=== PATIENT | female | born 1940 | race American Indian/Alaskan Native ===

== ENCOUNTER 2017-01-04 11:33 | Emergency (ER) | payer MEDICARE ==
--- NOTE | 2017-01-04 12:02 | Emergency Department Report ---
Chief Complaint: Nausea/Vomiting/Diarrhea Stated Complaint: VOMITTING/CHILLS/FEVER Time Seen by Provider: 01/04/17 11:45 - HPI History of Present Illness: debilitated pt w co cough and fever she vomiting once in last day no diarrhea here w daughter poor informant pcp melvin seeing new md now p referral from us recent urti fever 100.3 p advil at home on asa fenofibrate hctz lopressor nifedipine off her statin and wai bc she ran out pmh cva htn g tube w reversal hysterectomy hpld denies cad or dm. - Exam Vital Signs: Vital Signs 01/04/17 11:43 Temperature 100.3 F H Pulse Rate 109 H Respiratory 20 Rate Blood Pressure 162/92 O2 Sat by Pulse 96 Oximetry MSE screening note: Focused history and physical exam performed. Due to findings the following was ordered: ED Disposition for MSE Condition: Stable
[2017-01-04 12:45] LABS: Basophils % (Auto) 0.4 % (0.0-1.8); Eosinophils % (Auto) 0.7 % (0.0-4.3); Hematocrit 37.4 % (30.3-42.9); Hemoglobin 12.4 gm/dl (10.1-14.3); Mean Corpuscular HGB Conc 33 % (30-34); Mean Corpuscular Hemoglobin 30 pg (28-32); Mean Corpuscular Volume 90 fl (79-97); Platelet Count 281 K/mm3 (140-440); Red Blood Count 4.14 M/mm3 (3.65-5.03); Red Cell Distribution Width 13.3 % (13.2-15.2); White Blood Count 13.9 K/mm3 (4.5-11.0)
[2017-01-04 13:02] LABS: Alanine Aminotransferase 9 units/L (7-56); Albumin 3.4 g/dL (3.9-5); Albumin/Globulin Ratio 0.8 %; Alkaline Phosphatase 34 units/L (35-129); Amylase 144 units/L (27-131); Anion Gap 20 mmol/L; BUN/Creatinine Ratio 15.45; Blood Urea Nitrogen 17 mg/dL (7-17); Calcium 8.9 mg/dL (8.4-10.2); Carbon Dioxide 21 mmol/L (22-30); Glucose 120 mg/dL (65-100); Lipase 42 units/L (13-60); Potassium 3.5 mmol/L (3.6-5.0); Sodium 142 mmol/L (137-145); Total Protein 7.8 g/dL (6.3-8.2)
--- NOTE | 2017-01-04 14:38 | XRay Report ---
Chest 2 views: Compared to 12/12/15. History: Fever, cough. Nausea and vomiting. Findings: Borderline cardiomegaly. Trachea is midline. No consolidation, pneumothorax or pleural effusion. Impression: No definite acute cardiopulmonary findings.
[2017-01-04] MEDS ORDERED: ZOFRAN IV ONE (18:39)
[2017-01-04] MEDS ORDERED: LEVAQUIN 750MG/150ML 750 MG/150 ML BAG IV ONE (18:41)
--- NOTE | 2017-01-04 18:48 | Emergency Department Report ---
ED N/V/D HPI - General Chief complaint: Nausea/Vomiting/Diarrhea Stated complaint: VOMITTING/CHILLS/FEVER Time Seen by Provider: 01/04/17 18:33 Source: patient, family Mode of arrival: Ambulatory Limitations: Physical Limitation - History of Present Illness MD complaint: nausea, vomiting, abdominal pain -: Gradual Description of Vomiting: food contents Associated Abdominal Pain: Yes Location: diffuse Severity: moderate Quality: cramping Improves with: none Associated Symptoms: fever/chills, nausea/vomiting - Related Data Home Medications Medication Instructions Recorded Confirmed Last Taken Aspirin [Aspirin TAB] 325 mg PO QDAY 12/12/15 12/12/15 Unknown Fenofibrate [Lofibra] 160 mg PO QDAY 12/12/15 12/12/15 Unknown Hydrochlorothiazide [HCTZ] 12.5 mg PO DAILY 12/12/15 12/12/15 Unknown Lisinopril [Zestril TAB] 40 mg PO QDAY 12/12/15 12/12/15 Unknown Metoprolol [Lopressor TAB] 100 mg PO DAILY 12/12/15 12/12/15 Unknown NIFEdipine XL [Procardia Xl] 90 mg PO QDAY 12/12/15 12/12/15 Unknown Simvastatin [Zocor TAB] 80 mg PO QHS 12/12/15 12/12/15 Unknown Previous Rx's Medication Instructions Recorded Last Taken Type Azithromycin [Zithromax TAB] 250 mg PO QDAY #7 tablet 12/12/15 Unknown Rx Cefuroxime [Ceftin] 250 mg PO Q12H #20 tablet 12/12/15 Unknown Rx Levofloxacin [Levaquin TAB] 500 mg PO QDAY #7 tablet 01/04/17 Unknown Rx Ondansetron [Zofran Odt] 4 mg PO Q4-6H PRN #14 tab.rapdis 01/04/17 Unknown Rx Allergies Allergy/AdvReac Type Severity Reaction Status Date / Time clonidine Allergy Dizziness Verified 08/29/14 11:53 Penicillins Allergy Hives Verified 08/29/14 11:53 ED Review of Systems ROS: Stated complaint: VOMITTING/CHILLS/FEVER Other details as noted in HPI Comment: All other systems reviewed and negative ED Past Medical Hx - Past Medical History Previous Medical History?: Yes Hx Hypertension: Yes Hx CVA: Yes (left sided deficits) - Surgical History Past Surgical History?: No Additional Surgical History: G-tube placed and reversal , hysterectomy - Social History Smoking Status: Never Smoker Substance Use Type: Prescribed - Medications Home Medications: Home Medications Medication Instructions Recorded Confirmed Last Taken Type Aspirin [Aspirin TAB] 325 mg PO QDAY 12/12/15 12/12/15 Unknown History Azithromycin [Zithromax TAB] 250 mg PO QDAY #7 tablet 12/12/15 Unknown Rx Cefuroxime [Ceftin] 250 mg PO Q12H #20 tablet 12/12/15 Unknown Rx Fenofibrate [Lofibra] 160 mg PO QDAY 12/12/15 12/12/15 Unknown History Hydrochlorothiazide [HCTZ] 12.5 mg PO DAILY 12/12/15 12/12/15 Unknown History Lisinopril [Zestril TAB] 40 mg PO QDAY 12/12/15 12/12/15 Unknown History Metoprolol [Lopressor TAB] 100 mg PO DAILY 12/12/15 12/12/15 Unknown History NIFEdipine XL [Procardia Xl] 90 mg PO QDAY 12/12/15 12/12/15 Unknown History Simvastatin [Zocor TAB] 80 mg PO QHS 12/12/15 12/12/15 Unknown History Levofloxacin [Levaquin TAB] 500 mg PO QDAY #7 tablet 01/04/17 Unknown Rx Ondansetron [Zofran Odt] 4 mg PO Q4-6H PRN #14 tab.rapdis 01/04/17 Unknown Rx ED Physical Exam - General Limitations: Physical Limitation General appearance: alert, in no apparent distress - Head Head exam: Present: atraumatic, normocephalic - ENT ENT exam: Present: normal exam - Neck Neck exam: Present: normal inspection. Absent: meningismus - Respiratory Respiratory exam: Present: normal lung sounds bilaterally - Cardiovascular Cardiovascular Exam: Present: regular rate - GI/Abdominal GI/Abdominal exam: Present: soft - Neurological Exam Neurological exam: Present: alert, oriented X3, CN II-XII intact ED Course Vital Signs 01/04/17 01/04/17 01/04/17 11:43 18:44 18:53 Temperature 100.3 F H Pulse Rate 109 H 72 Respiratory 20 14 20 Rate Blood Pressure 162/92 Blood Pressure [Left] O2 Sat by Pulse 96 96 Oximetry 01/04/17 20:03 Temperature 98.2 F Pulse Rate 71 Respiratory 13 Rate Blood Pressure Blood Pressure 156/62 [Left] O2 Sat by Pulse 96 Oximetry ED Medical Decision Making - Lab Data Result diagrams: 01/04/17 12:26 01/04/17 12:26 - EKG Data -: EKG Interpreted by Me EKG shows normal: sinus rhythm Rate: normal - EKG Data When compared to previous EKG there are: no significant change Interpretation: no acute changes - Radiology Data Radiology results: report reviewed, image reviewed - Medical Decision Making PATIENT STATED THAT SHE FEEL MUCH BETTER , NO ABDOMINAL PAIN ,NAUSEA OR VOMITING.CT ABDOMEN/PEL WITH NO ACUTE FINDING Critical care attestation.: If time is entered above; I have spent that time in minutes in the direct care of this critically ill patient, excluding procedure time. ED Disposition Clinical Impression: Abdominal pain, Vomiting Disposition: DC-01 TO HOME OR SELFCARE Is pt being admited?: No Does the pt Need Aspirin: No Condition: Stable Instructions: Fever in Adults (ED), Abdominal Pain (ED) Prescriptions: Levofloxacin [Levaquin TAB] 500 mg PO QDAY #7 tablet Ondansetron [Zofran Odt] 4 mg PO Q4-6H PRN #14 tab.rapdis PRN Reason: Nausea And Vomiting
[2017-01-04 19:19] LABS: Bilirubin,Urine NEG (Negative); Blood,Urine NEG (Negative); Ketones,Urine TR mg/dL (Negative); Leukocyte Esterase,Urine NEG (Negative); Mucus,Urine FEW /HPF; Nitrite,Urine NEG (Negative)
--- NOTE | 2017-01-04 19:42 | Cat Scan Report ---
FINAL REPORT EXAM: CT ABDOMEN PELVIS WO CON HISTORY: ABDOMINAL PAIN TECHNIQUE: Spiral CT scanning of the abdomen and pelvis. No oral or IV contrast administered. Multiplanar reformations. PRIORS: None. FINDINGS: Abdomen: Examination limited due to lack of contrast administration. Visualized lung bases show mild atelectatic change or scarring bilaterally. Nodular densities in right middle lobe measuring approximately 6 and 4.5 mm, respectively, nonspecific. Calcified granuloma in the left lower lobe. Mild cardiomegaly. Small hiatal hernia. No radiopaque gallstones. Liver grossly unremarkable. Spleen grossly unremarkable. Pancreas grossly unremarkable. Mild cortical thinning or atrophic change bilaterally. Rounded hypodensity in the right kidney measures approximately 1.2 cm in lower pole. Subcentimeter, exophytic isodensity also off right renal lower pole. No apparent renal calcifications or significant hydronephrosis. Mild nodular enlargement in the left adrenal gland measuring 1.7 cm, nonspecific. Right adrenal gland grossly unremarkable. Pelvis: Mildly nonspecific bowel gas pattern without focal inflammatory change or evidence of mechanical obstruction. Mild diverticular change scattered in the colon. Appendix within normal limits. No significant free peritoneal fluid or loculated fluid collection. Diffuse aortoiliac calcification without aneurysmal dilatation. Degenerative changes in thoracolumbar spine. Small, fat-containing ventral hernia in the epigastric region and smaller hernia in the umbilical region. IMPRESSION: 1. Nonspecific bowel gas pattern suggesting adynamic ileus, which may be associated with nonspecific postinflammatory change, including enteritis. Correlate clinically. 2. Diverticulosis. 3. Right renal hypodensities possibly representing cysts, but nonspecific. Correlation with renal ultrasound may be confirmatory, as clinically indicated. 4. Left adrenal nodule may represent adenomatous change, but is indeterminate. Followup may be warranted. 5. Nodular densities in right middle lobe, indeterminate. If the patient is low risk (no significant smoking history, no history of malignancy, and a normal immune system) nodules 4-6 mm in size need noncontrast CT chest follow-up in 12 months. If there is no change at that time, no additional follow up is necessary. If the patient is high risk, follow-up noncontrast chest CT in 6-12 months recommended. If there is no change at that time, an additional noncontrast chest CT recommended at 18-24 months from today's date. (Based on Fleischner criteria).
[2017-01-04 20:04] VITALS: BP 156/62
== END 2017-01-04 21:20 | disposition home or self-care (01) ==
LOC: ED 11:33
DX: R11.2 Nausea with vomiting, unspecified (principal); R10.9 Unspecified abdominal pain; I10 Essential (primary) hypertension; Z79.82 Long term (current) use of aspirin; Z88.0 Allergy status to penicillin; Z88.8 Allergy status to other drugs, medicaments and biological substances; Z86.73 Personal history of transient ischemic attack (TIA), and cerebral infarction without residual deficits
CPT/HCPCS: 36415; 71020; 74176; 80053; 81001; 82140; 82150; 83690; 84484; 85025; 87040; 93005; 93010; 96365; 96375; 99284; J1956; J2405

== ENCOUNTER 2018-12-09 09:33 | Observation (INO) | payer MEDICARE ==
[2018-12-09 10:05] LABS: Basophils % (Auto) 0.3 % (0.0-1.8); Hematocrit 47.8 % (30.3-42.9); Hemoglobin 16.5 gm/dl (10.1-14.3); Lymphocytes # (Auto) 1.1 K/mm3 (1.2-5.4); Lymphocytes % (Auto) 10.2 % (13.4-35.0); Mean Corpuscular HGB Conc 35 % (30-34); Mean Corpuscular Volume 90 fl (79-97); Monocytes # (Auto) 1.1 K/mm3 (0.0-0.8); Monocytes % (Auto) 10.1 % (0.0-7.3); Platelet Count 319 K/mm3 (140-440); Red Cell Distribution Width 13.4 % (13.2-15.2)
[2018-12-09] MEDS ORDERED: NACL 0.9% 500 ML 500 ML IV ONE (10:13)
--- NOTE | 2018-12-09 10:18 | Emergency Department Report ---
HPI - General Chief Complaint: Weakness Time Seen by Provider: 12/09/18 10:01 - HPI HPI: 78-year-old -[place] female presents to the emergency department from her home with complaints of some generalized weakness, a transient headache, and some previous nausea with vomiting. The patient's daughter is helping to provide some of the history/information, as she is currently at bedside. The day before yesterday, the patient had one or 2 episodes of the nausea with vomiting. She potentially had another episode last night but that is unclear. The patient spent most of the day in bed yesterday and had to be coaxed out of bed by her family. This is unusual for her as she is normally more energetic, ambulatory, cooking for herself and completing all ADLs. The patient also says that she woke up today with a headache but that has since resolved. She does complain of some mild abdominal pain over the past 24 hours. She denies any problems with bowel or bladder, numbness or paresthesias, vision change, chest pain, shortness of breath, fever. She has not taken anything for her symptoms prior to presentation. No recent travel or sick contacts at home. Her primary care physician is Dr. Kim. The patient has a past medical history of hypertension and a previous CVA in the that had given her some left-sided deficits and difficulty with speech which may still be residual but is greatly improved. ED Past Medical Hx - Past Medical History Previous Medical History?: Yes Hx Hypertension: Yes Hx CVA: Yes (left sided deficits) Hx HIV: No - Surgical History Past Surgical History?: Yes Additional Surgical History: G-tube placed and reversal , hysterectomy - Social History Smoking Status: Never Smoker Substance Use Type: None - Medications Home Medications: Home Medications Medication Instructions Recorded Confirmed Last Taken Type Lisinopril [Zestril TAB] 40 mg PO QDAY 12/12/15 12/09/18 1 Day Ago History ~03/09/18 Metoprolol [Lopressor TAB] 100 mg PO BID 12/12/15 12/09/18 1 Day Ago History ~03/09/18 NIFEdipine XL [Procardia Xl] 90 mg PO QDAY 12/12/15 12/09/18 1 Day Ago History ~03/09/18 hydroCHLOROthiazide [HCTZ] 12.5 mg PO DAILY 12/12/15 12/09/18 1 Day Ago History ~03/09/18 Cholecalciferol Vit D3 [Vitamin D3 1,000 unit PO QDAY 12/09/18 12/09/18 Unknown History 1,000 UNIT TAB] ED Review of Systems ROS: Stated complaint: WEAK Other details as noted in HPI Constitutional: weakness. denies: chills, fever Eyes: denies: eye pain, vision change ENT: denies: ear pain, throat pain Respiratory: denies: cough, shortness of breath Cardiovascular: denies: chest pain, palpitations Gastrointestinal: abdominal pain, nausea, vomiting Genitourinary: denies: dysuria, discharge Musculoskeletal: denies: back pain, arthralgia Skin: denies: rash, lesions Neurological: headache (resolved). denies: numbness, paresthesias Physical Exam - Physical Exam Vital Signs: Vital Signs 12/09/18 09:37 Temperature 97.6 F Pulse Rate 104 H Respiratory 16 Rate Blood Pressure 150/90 [Left] O2 Sat by Pulse 97 Oximetry Physical Exam: GENERAL: The patient is well-developed well-nourished. HENT: Normocephalic. Atraumatic. Patient has moist mucous membranes. EYES: Extraocular motions are intact. Pupils equal reactive to light bilaterally. NECK: Supple. Trachea is midline. CHEST/LUNGS: Clear to auscultation. There is no respiratory distress noted. HEART/CARDIOVASCULAR: Regular. There is no tachycardia. There is no murmur. ABDOMEN: Abdomen is soft. There is some mild lower abdominal tenderness to palpation. No guarding. Cranial nerves II through XII grossly intact. No pronator drift. Normal bowel sounds. There is no abdominal distention. SKIN: Skin is warm and dry. NEURO: The patient is awake, alert, and oriented. The patient is cooperative. The patient has no focal neurologic deficits. The patient has normal speech. MUSCULOSKELETAL: There is no tenderness or deformity. There is no limitation range of motion. There is no evidence of acute injury. ED Course Vital Signs 12/09/18 09:37 Temperature 97.6 F Pulse Rate 104 H Respiratory 16 Rate Blood Pressure 150/90 [Left] O2 Sat by Pulse 97 Oximetry ED Medical Decision Making - Lab Data Result diagrams: 12/09/18 09:50 12/09/18 09:50 - EKG Data -: EKG Interpreted by Ri EKG shows normal: sinus rhythm, axis (left axis deviation), intervals, QRS complexes (LVH), ST-T waves Rate: tachycardia (102 bpm) - EKG Data When compared to previous EKG there are: no significant change Interpretation: unchanged when compared t (03/16/18) - Radiology Data Radiology results: report reviewed, image reviewed interpreted by me: Abdominal x-ray shows nonspecific nonobstructive bowel gas CT of the head without contrast was read by radiology as no acute intracranial process noted. - Medical Decision Making This patient presents to the emergency department with a few days of some generalized weakness. On examination she does not have any focal or lateralizing deficits, motor or sensory deficits, and her cranial nerves are intact. Labs are mostly unremarkable except for some mild hypokalemia and the patient has some acute renal failure with a GFR of 38 and a creatinine of 1.6. This is markedly decreased from the last time that we had her labs drawn here in March of last year. There is some mild increased BUN/creatinine ratio showing that this could be some prerenal azotemia and/or dehydration. We have started some IV hydration. CT of the head did not show any bleed, shift, mass, ischemia, or any other acute process. Abdominal x-ray shows nonspecific nonobstructive bowel gas. Her vital signs were stable throughout her ED course. However given the patient's acute renal failure, and her generalized weakness with a history of significant CVA, the patient will be admitted to the hospital for further evaluation and treatment. She was accepted for admission by the hospitalist, Dr. Freeman. - Differential Diagnosis CVA, TIA, Dehydration, Dysrythmia, Electrolyte Abnormalities Critical Care Time: No Critical care attestation.: If time is entered above; I have spent that time in minutes in the direct care of this critically ill patient, excluding procedure time. ED Disposition Clinical Impression: Generalized weakness, History of CVA (cerebrovascular accident), Prerenal azotemia Acute renal failure Qualifiers: Acute renal failure type: unspecified Qualified Code(s): N17.9 - Acute kidney failure, unspecified Disposition: OP ADMIT IP TO THIS HOSP Is pt being admited?: Yes Condition: Fair Time of Disposition: 12:08
[2018-12-09 10:23] LABS: Albumin 3.8 g/dL (3.9-5)
[2018-12-09] MEDS ORDERED: K-DUR PO ONE ×2 (10:26→17:08)
--- NOTE | 2018-12-09 11:17 | XRay Report ---
ABDOMEN, 2 views: History: Abdominal pain. There is no evidence of free air beneath the diaphragms. The gas pattern within the abdomen is unremarkable. There is no evidence of bowel dilatation, significant air-fluid levels, or pathologic calcifications. Organ shadows are unremarkable. Diffuse vascular calcifications are noted throughout the abdomen. IMPRESSION: Unremarkable abdomen.
--- NOTE | 2018-12-09 11:45 | Cat Scan Report ---
CT HEAD WITHOUT CONTRAST: HISTORY: Generalized weakness, headache. TECHNIQUE: Sequential 2.5mm CT images. COMPARISON: none. FINDINGS: There is mild volume loss in the supratentorial compartment. There is moderate to severe volume loss in the posterior fossa. Mild chronic white matter changes are also identified. There is a focal area of encephalomalacia measuring up to 4 cm in the left posterior temporal lobe which appears to represent a surgical site, correlate with history. Focal chronic infarcts are identified in the left subinsular cortex, adilson and inferior cerebellar hemispheres bilaterally. No evidence for hemorrhage, extra-axial fluid collection or mass effect. The visualized sinuses and mastoid air cells are adequately aerated. Defect in the left temporal bone is likely related to previous surgery. IMPRESSION: No acute intracranial process is identified. Volume loss, particularly in the posterior fossa. Chronic white matter changes. Chronic focal infarcts as described. Surgical site in the left posterior temporal region.
--- NOTE | 2018-12-09 14:15 | History and Physical Report ---
History of Present Illness Date of examination: 12/09/18 Date of admission: 12/09/18 12:09 Chief complaint: Mother is going to heart is a History of present illness: 78-year-old -[place] female with history of hypertension comes in for generalized weakness for last 2 days. Patient is normally active. Patient had couple of episodes of vomiting. No fever or chills. Patient has some generalized abdominal pain for the last 1 day. Normally patient is ambulatory, finishes all her ADLs including cooking for herself. No recent travel. No dysuria. No focal deficits. In the emergency room patient was found to have a creatinine of 1.6 Past Medical History Previous Medical History?: Yes Hypertension: Yes CVA: Yes (left sided deficits) Surgical History Past Surgical History?: Yes G-tube placed and reversed Hysterectomy Social History Smoking Status: Never Smoker Substance Use Type: None Family history Htn Review of Systems ROS: Stated complaint: Wto the leg was fairly regularly; irregularly I Constitutional: weakness. denies: chills, fever Eyes: denies: eye pain, vision change ENT: denies: ear pain, throat pain Respiratory: denies: cough, shortness of breath Cardiovascular: denies: chest pain, palpitations Gastrointestinal: abdominal pain, nausea, vomiting Genitourinary: denies: dysuria, discharge Musculoskeletal: denies: back pain, arthralgia Skin: denies: rash, lesions Neurological: headache (resolved). denies: numbness, paresthesias 14 point review of systems done--- otherwise negative Medications and Allergies Allergies Allergy/AdvReac Type Severity Reaction Status Date / Time clonidine Allergy Dizziness Verified 08/29/14 11:53 Iodine and Iodide Containing Allergy Unknown Verified 03/10/18 00:49 Produc Penicillins Allergy Hives Verified 08/29/14 11:53 Home Medications Medication Instructions Recorded Confirmed Last Taken Type Lisinopril [Zestril TAB] 40 mg PO QDAY 12/12/15 12/09/18 1 Day Ago History ~03/09/18 Metoprolol [Lopressor TAB] 100 mg PO BID 12/12/15 12/09/18 1 Day Ago History ~03/09/18 NIFEdipine XL [Procardia Xl] 90 mg PO QDAY 12/12/15 12/09/18 1 Day Ago History ~03/09/18 hydroCHLOROthiazide [HCTZ] 12.5 mg PO DAILY 12/12/15 12/09/18 1 Day Ago History ~03/09/18 Cholecalciferol Vit D3 [Vitamin D3 1,000 unit PO QDAY 12/09/18 12/09/18 Unknown History 1,000 UNIT TAB] Exam - Constitutional Vitals: Temp Pulse Resp BP Pulse Ox 97.6 F 85 24 132/80 94 12/09/18 09:37 12/09/18 13:01 12/09/18 13:01 12/09/18 13:01 12/09/18 13:01 General appearance: Present: no acute distress, well-nourished - EENT Eyes: Present: PERRL ENT: hearing intact, clear oral mucosa - Neck Neck: Present: supple, normal ROM - Respiratory Respiratory effort: normal Respiratory: bilateral: CTA - Cardiovascular Heart rate: 76 Rhythm: regular Heart Sounds: Present: S1 & S2. Absent: rub, click - Extremities Extremities: no ischemia, pulses intact, pulses symmetrical, No edema Peripheral Pulses: within normal limits - Abdominal General gastrointestinal: Present: soft, non-tender, non-distended, normal bowel sounds Female genitourinary: Present: normal - Rectal Rectal Exam: deferred - Integumentary Integumentary: Present: clear, warm, dry - Musculoskeletal Musculoskeletal: gait normal, strength equal bilaterally - Psychiatric Psychiatric: appropriate mood/affect, intact judgment & insight - Neurologic Neurologic: CNII-XII intact, moves all extremities - Allied Health Allied health notes reviewed: nursing, case management Results - Labs CBC & Chem 7: 12/09/18 09:50 12/09/18 09:50 Labs: Laboratory Last Values WBC 10.7 K/mm3 (4.5-11.0) 12/09/18 09:50 RBC 5.30 M/mm3 (3.65-5.03) H 12/09/18 09:50 Hgb 16.5 gm/dl (10.1-14.3) H 12/09/18 09:50 Hct 47.8 % (30.3-42.9) H 12/09/18 09:50 MCV 90 fl (79-97) 12/09/18 09:50 MCH 31 pg (28-32) 12/09/18 09:50 MCHC 35 % (30-34) H 12/09/18 09:50 RDW 13.4 % (13.2-15.2) 12/09/18 09:50 Plt Count 319 K/mm3 (140-440) 12/09/18 09:50 Lymph % (Auto) 10.2 % (13.4-35.0) L 12/09/18 09:50 [place] % (Auto) 10.1 % (0.0-7.3) H 12/09/18 09:50 Eos % (Auto) 0.0 % (0.0-4.3) 12/09/18 09:50 Baso % (Auto) 0.3 % (0.0-1.8) 12/09/18 09:50 Lymph # 1.1 K/mm3 (1.2-5.4) L 12/09/18 09:50 [place] # 1.1 K/mm3 (0.0-0.8) H 12/09/18 09:50 Eos # 0.0 K/mm3 (0.0-0.4) 12/09/18 09:50 Baso # 0.0 K/mm3 (0.0-0.1) 12/09/18 09:50 Seg Neutrophils % 79.4 % (40.0-70.0) H 12/09/18 09:50 Seg Neutrophils # 8.5 K/mm3 (1.8-7.7) H 12/09/18 09:50 Sodium 141 mmol/L (137-145) 12/09/18 09:50 Potassium 3.4 mmol/L (3.6-5.0) L 12/09/18 09:50 Chloride 97.7 mmol/L (98-107) L 12/09/18 09:50 Carbon Dioxide 24 mmol/L (22-30) 12/09/18 09:50 23 mmol/L 12/09/18 09:50 BUN 35 mg/dL (7-17) H 12/09/18 09:50 1.6 mg/dL (0.7-1.2) H 12/09/18 09:50 Estimated GFR 38 ml/min 12/09/18 09:50 22 % 12/09/18 09:50 Glucose 193 mg/dL (65-100) H 12/09/18 09:50 POC Glucose 157 (70-105) H 12/09/18 09:44 Calcium 10.0 mg/dL (8.4-10.2) 12/09/18 09:50 0.60 mg/dL (0.1-1.2) 12/09/18 09:50 AST 20 units/L (5-40) 12/09/18 09:50 ALT 9 units/L (7-56) 12/09/18 09:50 38 units/L (35-129) 12/09/18 09:50 < 0.010 ng/mL (0.00-0.029) 12/09/18 09:50 8.8 g/dL (6.3-8.2) H 12/09/18 09:50 3.8 g/dL (3.9-5) L 12/09/18 09:50 0.8 % 12/09/18 09:50 21 units/L (13-60) 12/09/18 09:50 TSH 1.080 mlU/mL (0.270-4.200) 12/09/18 10:23 Short CBC 12/09/18 Range/Units 09:50 WBC 10.7 (4.5-11.0) K/mm3 Hgb 16.5 H (10.1-14.3) gm/dl Hct 47.8 H (30.3-42.9) % Plt Count 319 (140-440) K/mm3 BMP 12/09/18 09:50 Sodium 141 Potassium 3.4 L Chloride 97.7 L Carbon Dioxide 24 BUN 35 H Creatinine 1.6 H Glucose 193 H Calcium 10.0 Cardiac Enzymes 12/09/18 Range/Units 09:50 Troponin T < 0.010 (0.00-0.029) ng/mL Liver Function 12/09/18 Range/Units 09:50 Total Bilirubin 0.60 (0.1-1.2) mg/dL AST 20 (5-40) units/L ALT 9 (7-56) units/L Alkaline Phosphatase 38 (35-129) units/L Albumin 3.8 L (3.9-5) g/dL Short CBC 12/09/18 Range/Units 09:50 WBC 10.7 (4.5-11.0) K/mm3 Hgb 16.5 H (10.1-14.3) gm/dl Hct 47.8 H (30.3-42.9) % Plt Count 319 (140-440) K/mm3 BMP 12/09/18 09:50 Sodium 141 Potassium 3.4 L Chloride 97.7 L Carbon Dioxide 24 BUN 35 H Creatinine 1.6 H Glucose 193 H Calcium 10.0 Cardiac Enzymes 12/09/18 Range/Units 09:50 Troponin T < 0.010 (0.00-0.029) ng/mL Liver Function 12/09/18 Range/Units 09:50 Total Bilirubin 0.60 (0.1-1.2) mg/dL AST 20 (5-40) units/L ALT 9 (7-56) units/L Alkaline Phosphatase 38 (35-129) units/L Albumin 3.8 L (3.9-5) g/dL Assessment and Plan Advance Directives: Yes (full code) VTE prophylaxis?: Chemical Plan of care discussed with patient/family: Yes - Patient Problems (1) RAMIRO (acute kidney injury) Current Visit: Yes Status: Acute Plan to address problem: Patient is hemoconcentration and creatinine of 1.6 Patient started on IV fluids Symptomatic treatment for nausea and vomiting No obvious cause for vomiting RAMIRO probably secondary to ATN or vasomotor nephropathy (2) Hypertension Current Visit: Yes Status: Chronic Qualifiers: Hypertension type: essential hypertension Qualified Code(s): I10 - Essential (primary) hypertension Plan to address problem: Continue her home antihypertensives except the hydrochlorothiazide (3) Hypokalemia Current Visit: Yes Status: Acute Plan to address problem: Supplemented Patient was on hydrochlorothiazide but not on potassium (4) Malnutrition Current Visit: Yes Status: Chronic Qualifiers: Malnutrition type: protein-calorie malnutrition Protein-calorie malnutrition severity: mild Qualified Code(s): E44.1 - Mild protein-calorie malnutrition Plan to address problem: Mild Oral supplements added (5) Advanced care planning/counseling discussion Current Visit: Yes Status: Acute Plan to address problem: Discussed DO NOT RESUSCITATE Daughter wants full code (6) DVT prophylaxis Current Visit: Yes Status: Acute Plan to address problem: On heparin 5000 every 12 and GI prophylaxis
[2018-12-09] MEDS ORDERED: ZOFRAN IV PRN (16:20)
[2018-12-09] MEDS ORDERED: TYLENOL PO PRN (16:20)
[2018-12-09] MEDS ORDERED: DILAUDID IV PRN (16:20)
[2018-12-09] MEDS ORDERED: SODIUM CHLORIDE FLUSH SYRINGE 10 ML IV PRN (16:20)
[2018-12-09] MEDS: NACL 0.45% 1000 ML 1,000 ML IV SCH (17:43)
[2018-12-09] MEDS: PROCARDIA XL PO SCH (17:47)
[2018-12-09] MEDS: VITAMIN D3 PO SCH (17:47)
[2018-12-09] MEDS: ZESTRIL PO SCH (17:48)
[2018-12-09] MEDS: PEPCID PO SCH (17:52)
[2018-12-09] MEDS: SODIUM CHLORIDE FLUSH SYRINGE 10 ML IV SCH (21:15)
[2018-12-09] MEDS: LOPRESSOR PO SCH (21:17)
[2018-12-09] MEDS ORDERED: PEPCID PO SCH (22:00)
[2018-12-09] MEDS: HumaLOG SUB-Q SCH (22:52)
[2018-12-10 00:10] LABS: Bilirubin,Urine NEG (Negative); Blood,Urine NEG (Negative); Color,Urine Yellow (Yellow); Hyaline Casts,Urine 36 /LPF; Mucus,Urine FEW /HPF; Protein,Urine <15 mg/dL mg/dL (Negative); Urobilinogen,Urine < 2.0 mg/dL (<2.0)
[2018-12-10] MEDS: NACL 0.45% 1000 ML 1,000 ML IV SCH ×3 (04:22→23:05)
[2018-12-10 05:42] LABS: Basophils % (Auto) 0.4 % (0.0-1.8); Eosinophils % (Auto) 0.5 % (0.0-4.3); Hematocrit 42.4 % (30.3-42.9); Hemoglobin 14.3 gm/dl (10.1-14.3); Lymphocytes # (Auto) 1.2 K/mm3 (1.2-5.4); Lymphocytes % (Auto) 16.5 % (13.4-35.0); Mean Corpuscular HGB Conc 34 % (30-34); Mean Corpuscular Volume 92 fl (79-97); Monocytes # (Auto) 0.8 K/mm3 (0.0-0.8); Monocytes % (Auto) 11.2 % (0.0-7.3); Platelet Count 272 K/mm3 (140-440); Red Blood Count 4.62 M/mm3 (3.65-5.03); Red Cell Distribution Width 13.3 % (13.2-15.2)
[2018-12-10 06:15] LABS: Albumin 3.1 g/dL (3.9-5); Calcium 9.5 mg/dL (8.4-10.2)
[2018-12-10] MEDS: HumaLOG SUB-Q SCH ×4 (07:30→23:06)
--- NOTE | 2018-12-10 08:30 | Progress Note ---
Assessment and Plan Assessment and plan: --Gen weakness; Nutrition supplements supportive care physical therapy occupational therapy --Acute kidney injury; vasomotor nephropathy Creatinine level back to baseline, avoid nephrotoxins --Hypertension; moderate control Continue current antihypertensives and when necessary medications --Hypokalemia; corrected, monitor electrolytes --Moderate malnutrition; nutrition supplements nutrition consult if needed Encourage increase oral intake --DVT prophylaxis; Lovenox --CODE STATUS full code --Monitor closely and adjust management as needed Plan of care is reviewed with the patient's family especially the daughter Possible discharge home tomorrow if stable History Interval history: Patient seen and examined medical records reviewed Patient feels better , complaints of weakness Vital signs noted,not in distress Hospitalist Physical - Constitutional Vitals: Temp Pulse Resp BP Pulse Ox 98.4 F 77 18 125/50 90 12/10/18 02:43 12/10/18 02:43 12/10/18 02:43 12/10/18 02:43 12/10/18 02:43 General appearance: Present: no acute distress, well-nourished - EENT Eyes: Present: PERRL, EOM intact - Neck Neck: Present: supple, normal ROM - Respiratory Respiratory effort: normal Respiratory: bilateral: diminished, negative: rales, rhonchi, wheezing - Cardiovascular Rhythm: regular Heart Sounds: Present: S1 & S2 - Extremities Extremities: no ischemia, No edema - Abdominal General gastrointestinal: soft, non-tender, non-distended, normal bowel sounds - Integumentary Integumentary: Present: clear, warm - Psychiatric Psychiatric: appropriate mood/affect, cooperative - Neurologic Neurologic: CNII-XII intact, moves all extremities Results - Labs CBC & Chem 7: 12/10/18 04:57 12/10/18 04:57 Labs: Laboratory Last Values WBC 7.2 K/mm3 (4.5-11.0) 12/10/18 04:57 RBC 4.62 M/mm3 (3.65-5.03) 12/10/18 04:57 Hgb 14.3 gm/dl (10.1-14.3) 12/10/18 04:57 Hct 42.4 % (30.3-42.9) 12/10/18 04:57 MCV 92 fl (79-97) 12/10/18 04:57 MCH 31 pg (28-32) 12/10/18 04:57 MCHC 34 % (30-34) 12/10/18 04:57 RDW 13.3 % (13.2-15.2) 12/10/18 04:57 Plt Count 272 K/mm3 (140-440) 12/10/18 04:57 Lymph % (Auto) 16.5 % (13.4-35.0) 12/10/18 04:57 [place] % (Auto) 11.2 % (0.0-7.3) H 12/10/18 04:57 Eos % (Auto) 0.5 % (0.0-4.3) 12/10/18 04:57 Baso % (Auto) 0.4 % (0.0-1.8) 12/10/18 04:57 Lymph # 1.2 K/mm3 (1.2-5.4) 12/10/18 04:57 [place] # 0.8 K/mm3 (0.0-0.8) 12/10/18 04:57 Eos # 0.0 K/mm3 (0.0-0.4) 12/10/18 04:57 Baso # 0.0 K/mm3 (0.0-0.1) 12/10/18 04:57 Seg Neutrophils % 71.4 % (40.0-70.0) H 12/10/18 04:57 Seg Neutrophils # 5.1 K/mm3 (1.8-7.7) 12/10/18 04:57 Sodium 142 mmol/L (137-145) 12/10/18 04:57 Potassium 4.1 mmol/L (3.6-5.0) D 12/10/18 04:57 Chloride 105.2 mmol/L (98-107) 12/10/18 04:57 Carbon Dioxide 24 mmol/L (22-30) 12/10/18 04:57 17 mmol/L 12/10/18 04:57 BUN 36 mg/dL (7-17) H 12/10/18 04:57 1.2 mg/dL (0.7-1.2) 12/10/18 04:57 Estimated GFR 53 ml/min 12/10/18 04:57 30 % 12/10/18 04:57 Glucose 112 mg/dL (65-100) H 12/10/18 04:57 POC Glucose 100 (70-105) 12/10/18 07:15 5.6 % (4-6) 12/09/18 16:37 Calcium 9.5 mg/dL (8.4-10.2) 12/10/18 04:57 0.50 mg/dL (0.1-1.2) 12/10/18 04:57 AST 17 units/L (5-40) 12/10/18 04:57 ALT 7 units/L (7-56) 12/10/18 04:57 31 units/L (35-129) L 12/10/18 04:57 < 0.010 ng/mL (0.00-0.029) 12/09/18 09:50 7.3 g/dL (6.3-8.2) 12/10/18 04:57 3.1 g/dL (3.9-5) L 12/10/18 04:57 0.7 % 12/10/18 04:57 21 units/L (13-60) 12/09/18 09:50 TSH 1.080 mlU/mL (0.270-4.200) 12/09/18 10:23 Yellow (Yellow) 12/09/18 Unknown Slightly-cloudy (Clear) 12/09/18 Unknown 5.0 (5.0-7.0) 12/09/18 Unknown Ur Specific [place] 1.020 (1.003-1.030) 12/09/18 Unknown <15 mg/dl mg/dL (Negative) 12/09/18 Unknown Neg mg/dL (Negative) 12/09/18 Unknown Neg mg/dL (Negative) 12/09/18 Unknown Neg (Negative) 12/09/18 Unknown Neg (Negative) 12/09/18 Unknown Neg (Negative) 12/09/18 Unknown < 2.0 mg/dL (<2.0) 12/09/18 Unknown Ur Leukocyte Esterase Neg (Negative) 12/09/18 Unknown 3.0 /HPF (0.0-6.0) 12/09/18 Unknown 1.0 /HPF (0.0-6.0) 12/09/18 Unknown U Epithel Cells (Auto) 21.0 /HPF (0-13.0) H 12/09/18 Unknown Hyaline Casts 36 /LPF 12/09/18 Unknown Few /HPF 12/09/18 Unknown Active Medications - Current Medications Current Medications: Generic Name Dose Route Start Last Admin Trade Name Blair PRN Reason Stop Dose Admin Acetaminophen 650 mg 12/09/18 16:20 Tylenol PO Q4H PRN Pain MILD(1-3)/Fever >100.5/DUONG Cholecalciferol 1,000 unit 12/09/18 17:00 12/09/18 17:47 Vitamin D3 PO 1,000 unit QDAY YARELI Administration Famotidine 20 mg 12/09/18 17:15 12/09/18 17:52 Pepcid PO 20 mg DAILY YARELI Administration Hydromorphone HCl 0.25 mg 12/09/18 16:20 Dilaudid IV Q3H PRN Pain, Moderate (4-6) Sodium Chloride 1,000 mls @ 100 mls/hr 12/09/18 17:00 12/10/18 04:22 Nacl 0.45% 1000 Ml IV 100 mls/hr DIRECT YARELI Administration Insulin Human Lispro 0 unit 12/09/18 22:00 12/09/18 22:52 Humalog SUB-Q Not Given ACHS [facility] Protocol Lisinopril 40 mg 12/09/18 17:00 12/09/18 17:48 Zestril PO 40 mg QDAY YARELI Administration Metoprolol Tartrate 100 mg 12/09/18 22:00 12/09/18 21:17 Lopressor PO 100 mg BID YARELI Administration Nifedipine 90 mg 12/09/18 17:00 12/09/18 17:47 Procardia Xl PO 90 mg QDAY YARELI Administration Ondansetron HCl 4 mg 12/09/18 16:20 Zofran IV Q8H PRN Nausea And Vomiting Sodium Chloride 10 ml 12/09/18 22:00 12/09/18 21:15 Sodium Chloride Flush Syringe 10 Ml IV 10 ml BID YARELI Administration Sodium Chloride 10 ml 12/09/18 16:20 Sodium Chloride Flush Syringe 10 Ml IV PRN PRN LINE FLUSH
[2018-12-10] MEDS: LOPRESSOR PO SCH ×2 (10:18→21:56)
[2018-12-10] MEDS: ZESTRIL PO SCH (10:18)
[2018-12-10] MEDS: SODIUM CHLORIDE FLUSH SYRINGE 10 ML IV SCH ×2 (10:18→23:08)
[2018-12-10] MEDS: PEPCID PO SCH (10:18)
[2018-12-10] MEDS: VITAMIN D3 PO SCH (10:18)
[2018-12-10] MEDS: PROCARDIA XL PO SCH (10:18)
[2018-12-11] MEDS: HumaLOG SUB-Q SCH ×2 (07:30→11:56)
[2018-12-11 08:41] VITALS: BP 130/69
[2018-12-11] MEDS: PEPCID PO SCH (10:06)
[2018-12-11] MEDS: VITAMIN D3 PO SCH (10:06)
[2018-12-11] MEDS: LOPRESSOR PO SCH (10:06)
[2018-12-11] MEDS: ZESTRIL PO SCH (10:06)
[2018-12-11] MEDS: NACL 0.45% 1000 ML 1,000 ML IV SCH (10:06)
[2018-12-11] MEDS: SODIUM CHLORIDE FLUSH SYRINGE 10 ML IV SCH (10:07)
[2018-12-11] MEDS: PROCARDIA XL PO SCH (10:07)
--- NOTE | 2018-12-11 12:31 | Discharge Summary ---
Providers - Providers Date of Admission: 12/09/18 12:09 Date of discharge: 12/11/18 Attending physician: ATILIO GUERRERO 12/10/18 19:46 Physical Therapy Evaluation and Treat [CONS] Routine Comment: Reason For Exam: gen debility/unsteady gait/home PT need Primary care physician: STEPHY CISNEROS Hospitalization Reason for admission: generalized weakness Condition: Fair Pertinent studies: CT head without contrast; no acute intracranial abnormality noted ,volume loss and chronic white matter changes, Transferred chronic focal infarcts, posterior temporal region surgical site X-ray abdomen; normal study Hospital course: 78-year-old -[place] female with history of hypertension was admitted through emergency room for evaluation of generalized weakness for last 2 days. Patient is normally active. Patient had couple of episodes of vomiting. Completely resolved admitted to the hospital symptomatically managed CT head no acute abnormalities noted, except remained within normal limits Patient's blood pressures closely monitored medications optimized, had acute kidney injury secondary to vasomotor nephropathy at the time of admission Managed with gentle hydration avoiding nephrotoxins, renal function returned to baseline Received nutrition supplements for malnutrition Significantly improved today patient is comfortable in no new complaints vital signs stable physical examination unremarkable Strongly advise fall precautions Patient is hemodynamically and clinically stable at discharge Discharge diagnosis --Gen weakness; Nutrition supplements supportive care physical therapy occupational therapy --Acute kidney injury; vasomotor nephropathy Creatinine level back to baseline, avoid nephrotoxins --Hypertension; moderate control Continue current antihypertensives and when necessary medications --Hypokalemia; corrected, monitor electrolytes --Moderate malnutrition; nutrition supplements nutrition consult if needed Encourage increase oral intake --DVT prophylaxis; Lovenox --CODE STATUS full code --Monitor closely and adjust management as needed Plan of care is reviewed with the patient's family especially the daughter Possible discharge home tomorrow if stable Disposition: DC-01 TO HOME OR SELFCARE Time spent for discharge: 32 min Core Measure Documentation - Palliative Care Palliative Care/ Comfort Measures: Not Applicable - Core Measures Any of the following diagnoses?: none Exam - Constitutional Vitals: Temp Pulse Resp BP Pulse Ox 98.7 F 78 18 130/69 96 12/11/18 08:05 12/11/18 10:06 12/11/18 02:00 12/11/18 10:06 12/11/18 08:05 General appearance: Present: no acute distress, well-nourished - EENT Eyes: Present: PERRL, EOM intact - Neck Neck: Present: supple, normal ROM - Respiratory Respiratory effort: normal Respiratory: bilateral: CTA, negative: diminished, rales, rhonchi, wheezing - Cardiovascular Rhythm: regular Heart Sounds: Present: S1 & S2 - Extremities Extremities: no ischemia, pulses intact - Abdominal General gastrointestinal: Present: soft, non-tender, non-distended - Integumentary Integumentary: Present: clear, warm - Musculoskeletal Musculoskeletal: strength equal bilaterally - Psychiatric Psychiatric: appropriate mood/affect, cooperative - Neurologic Neurologic: CNII-XII intact, moves all extremities Plan Activity: advance as tolerated, fall precautions Diet: regular Additional Instructions: Fall precautions Follow up with: STEPHY CISNEROS MD [Primary Care Provider] - 3-5 Days Prescriptions: Famotidine [Pepcid] 20 mg PO DAILY #20 tablet
== END 2018-12-11 13:35 | disposition home or self-care (01) ==
LOC: ED 09:33 → 2B-ACE 12:09
PROVIDERS: ADMIT Internal Medicine; ATTEND Internal Medicine
DX: N17.9 Acute kidney failure, unspecified (principal); R53.1 Weakness; I10 Essential (primary) hypertension; E87.6 Hypokalemia; E46 Unspecified protein-calorie malnutrition; R11.10 Vomiting, unspecified; Z86.73 Personal history of transient ischemic attack (TIA), and cerebral infarction without residual deficits; Z90.710 Acquired absence of both cervix and uterus
CPT/HCPCS: 36415; 70450; 74019; 80053; 81001; 82962; 83036; 83690; 84443; 84484; 85025; 87116; 93005; 93010; 96360; 96361; 99284; G0378; J7030; J7040